=== PATIENT | female | born 1995 | race African-American/Black ===

== ENCOUNTER 2017-07-28 09:14 | Emergency (ER) | payer SELFPAY ==
--- NOTE | 2017-07-28 09:39 | ER Document Report ---
HPI - HPI Patient complains to provider of: flank pain Onset: Just prior to arrival Onset/Duration: Sudden Quality of pain: Sharp, Stabbing Severity: Severe Pain Level: 5 Context: Woke up with right flank pain. Stabbing. Vomiting. Rapid assessment performed at triage and orders began. Patient to be transferred immediately back to main side ER. Associated Symptoms: Vomiting Exacerbated by: Denies Relieved by: Denies Similar symptoms previously: Yes - States that she had Jose Angel when she was before and it feels the same Past Medical History - General Information source: Patient - Social History Smoking Status: Unknown if Ever Smoked Family History: Reviewed & Not Pertinent Vertical Provider Document - CONSTITUTIONAL Agree With Documented VS: Yes Exam Limitations: Clinical Condition - INFECTION CONTROL TRAVEL OUTSIDE OF THE [place] IN LAST 30 DAYS: No - HEENT HEENT: Atraumatic, Normal ENT Exam. negative: Conjuctival Injection - NECK Neck: Normal Inspection, Supple - RESPIRATORY Respiratory: Breath Sounds Normal, No Respiratory Distress O2 Sat by Pulse Oximetry: 99 - CARDIOVASCULAR Cardiovascular: Regular Rate - GI/ABDOMEN Gastrointestinal: Abdomen Soft - MUSCULOSKELETAL/EXTREMETIES Notes: Mild right flank tenderness to percussion - NEURO Level of Consciousness: Awake, Alert Course - Re-evaluation Re-evalutation: 07/28/17 09:42 Possible kidney stone versus pyelonephritis. Will start labs and transfer back to main site ER. The rapid assessment was performed - Vital Signs Vital signs: Temp Pulse Resp BP Pulse Ox 98.5 F 82 20 116/99 H 99 07/28/17 09:18 07/28/17 09:18 07/28/17 09:18 07/28/17 09:18 07/28/17 09:18 Discharge - Discharge Clinical Impression: Flank pain
[2017-07-28] MEDS ORDERED: ONDANSETRON HCL INJ/PF 4 MG/2 ML SDV IV ONE (09:40)
--- NOTE | 2017-07-28 10:00 | ER Document Report ---
ED GI/ - General Mode of Arrival: Ambulatory Information source: Patient TRAVEL OUTSIDE OF THE [place] IN LAST 30 DAYS: No <ANNA BRAMBILA - Last Filed: 07/28/17 10:05> <DANIELA RAMÍREZ - Last Filed: 07/28/17 13:01> - General Chief Complaint: Flank Pain Stated Complaint: ABDOMINAL PAIN Time Seen by Provider: 07/28/17 09:33 Notes: Patient is a 22-year-old female who presents to the emergency department today with complaints of right-sided flank and right sided abdominal pain. Patient states her symptoms began yesterday at 1000 in the morning. Patient states her pain began in her right flank and today the pain radiates into her right lower quadrant. Patient states the pain is constant. Patient states she "feels super hot". Patient is with her LMP being April 25. Patient has received no care and is not taking vitamins. Patient denies dysuria. (ANNA BRAMBILA) - Related Data Allergies/Adverse Reactions: No Known Allergies Allergy (Verified 07/28/17 09:17) Past Medical History - General Information source: Patient - Social History Smoking Status: Never Smoker Cigarette use (# per day): No Frequency of alcohol use: None Drug Abuse: None Lives with: Family Family History: Reviewed & Not Pertinent Patient has suicidal ideation: No Patient has homicidal ideation: No - Medical History Medical History: Negative Surgical Hx: Negative <ANNA BRAMBILA - Last Filed: 07/28/17 10:05> Review of Systems - Review of Systems Constitutional: See HPI, Other - "feels super hot" EENT: No symptoms reported Cardiovascular: No symptoms reported Respiratory: No symptoms reported Gastrointestinal: See HPI, Abdominal pain, Nausea, Vomiting Genitourinary: See HPI, Flank pain. denies: Dysuria Female Genitourinary: See HPI, Last menstrual period - Apr 25 Musculoskeletal: No symptoms reported Skin: No symptoms reported Hematologic/Lymphatic: No symptoms reported Neurological/Psychological: No symptoms reported -: Yes All other systems reviewed and negative <ANNA BRAMBILA - Last Filed: 07/28/17 10:05> Physical Exam <ANNA BRAMBILA - Last Filed: 07/28/17 10:05> <DANIELA RAMÍREZ - Last Filed: 07/28/17 13:01> - Vital signs Vitals: Temp Pulse Resp BP Pulse Ox 98.5 F 82 20 116/99 H 99 07/28/17 09:18 07/28/17 09:18 07/28/17 09:18 07/28/17 09:18 07/28/17 09:18 - Notes Notes: Physical Exam: General: Alert, appears uncomfortable. HEENT: Normocephalic. Atraumatic. PERRL. Extraocular movements intact. Oropharynx clear. No nystagmus. Neck: Supple. Non-tender. Respiratory: No respiratory distress. Clear and equal breath sounds bilaterally. Cardiovascular: Regular rate and rhythm. Abdominal: Gravid. Palpating left side of abdomen causes pain on the right. RUQ palpation causes discomfort in back. RLQ is exquisitely tender with palpation. Nauseated during exam. No guarding or rebound. No distension. Normal Bowel Sounds. Back: Right CVA ttp. No deformity or step off. Extremities: Moves all four extremities. Upper extremities: Normal inspection. Normal ROM. Lower extremities: Normal inspection. No edema. Normal ROM. Neurological: Normal cognition. AAOx4. Normal speech. Psychological: Normal affect. Normal Mood. Skin: Warm. Dry. Normal color. (ANNA BRAMBILA) Course <ANNA BRAMBILA - Last Filed: 07/28/17 10:05> - Laboratory Result Diagrams: 07/28/17 10:20 07/28/17 10:20 - Diagnostic Test Radiology reviewed: Image reviewed, Reports reviewed - Ultrasounds show a 14 week IUP with heart rate of 153. Right renal ultrasound shows marked hydronephrosis. <DANIELA RAMÍREZ - Last Filed: 07/28/17 13:01> - Re-evaluation Re-evalutation: 07/28/17 12:49 The patient's catheterized urinalysis shows 5 WBCs and 132 RBCs without any epithelial cells. The ultrasound shows marked hydronephrosis in the right kidney. (DANIELA RAMÍREZ) - Vital Signs Vital signs: Temp Pulse Resp BP Pulse Ox 98.5 F 82 20 116/99 H 99 07/28/17 09:18 07/28/17 09:18 07/28/17 09:55 07/28/17 09:18 07/28/17 09:43 - Laboratory Laboratory results interpreted by me: 07/28/17 07/28/17 07/28/17 09:50 10:20 10:20 RBC 3.70 L Hgb 11.4 L Hct 33.0 L Creatinine 0.51 L Alkaline Phosphatase 32 L Urine Protein 30 H Urine Blood LARGE H Ur Leukocyte Esterase TRACE H Urine HCG, Qual POSITIVE H 07/28/17 12:09 RBC Hgb Hct Creatinine Alkaline Phosphatase Urine Protein Urine Blood LARGE H Ur Leukocyte Esterase Urine HCG, Qual Discharge <ANNA BRAMBILA - Last Filed: 07/28/17 10:05> <DANIELA RAMÍREZ - Last Filed: 07/28/17 13:01> - Discharge Clinical Impression: Renal colic on right side, with 14 completed weeks gestation Condition: Stable Disposition: HOME, SELF-CARE Additional Instructions: You are 14 weeks . care is best started as early in as possible. You should take only medications approved by your physician. Acetaminophen can safely be taken for minor pains. As a rule, medication for chronic conditions such as asthma or seizures can safely be continued. You should discuss with the physician every medicine you take. Any regular exercise program can be continued. Talk to your physician, however, before engaging in competitive or demanding sports. Alcohol, smoking, and "street drugs" are dangerous to your baby. Cocaine is especially dangerous. Don't use any illicit drugs! Kidney Stone You are passing a kidney stone. These stones are usually due to increased calcium or uric acid concentrations in your urine. Stones within the kidney itself are not painful. The pain occurs as the stone leaves the kidney to pass down the long tube, called the ureter, leading to the bladder. If the stone is small, it will usually pass by itself. Most patients can pass the stone at home. You will usually receive medications for pain, nausea or vomiting, and sometimes a medication to assist in passing the kidney stone. However, if the pain is very severe or if vomiting prevents you from taking oral pain medications, you may need to return for further treatment. Drink three or four quarts of fluids per day. You will be given pain medication (if needed) and urine strainers. Strain all your urine to see if the stone passes. If your doctor has asked you to bring the stone in for analysis, return with the stone once it has passed. Return if pain or vomiting become severe, if you develop a high fever, if you are unable to pass your urine, or if other unusual symptoms occur. TAKE THE MEDICATION PRESCRIBED FOR PAIN AND NAUSEA. DRINK PLENTY OF FLUIDS. STRAIN THE URINE. FOLLOW UP WITH THE HEALTH DEPARTMENT TUESDAY FOR YOUR . FOLLOW UP WITH [facility]--CALL TUESDAY FOR AN APPOINTMENT NEXT WEEK. RETURN TO THE EMERGENCY ROOM IF ANY NEW OR WORSENING SYMPTOMS. Prescriptions: Metoclopramide HCl [Reglan 10 mg Tablet] 1 tab PO ASDIR PRN #20 tablet PRN Reason: Oxycodone HCl/Acetaminophen [Percocet 5-325 mg Tablet] 1 tab PO ASDIR PRN #20 tablet PRN Reason: [facility]errals: [facility] [Provider Group] - Follow up in 1 week Scribe Attestation: 07/28/17 12:14 I personally performed the services described in the documentation, reviewed and edited the documentation which was dictated to the scribe in my presence, and it accurately records my words and actions. (DANIELA RAMÍREZ) Scribe Documentation - Scribe Written by Zuleima:: Zuleima Mccauley, 07/28/2017 1012 acting as scribe for :: Vanessa <ANNA BRAMBILA - Last Filed: 07/28/17 10:05>
[2017-07-28] MEDS ORDERED: METOCLOPRAMIDE HCL INJ/PF 10 MG/2 ML SDV IV ONE (10:02)
[2017-07-28] MEDS ORDERED: MORPHINE SULFATE 10 MG/ML INJ IV ONE ×3 (10:02→12:52)
[2017-07-28] MEDS ORDERED: NORMAL SALINE 1000 ML 1,000 ML IV ONE (10:02)
[2017-07-28 10:13] LABS: APPEARANCE,URINE TURBID; BILIRUBIN,URINE NEGATIVE (NEGATIVE); GLUCOSE, URINE NEGATIVE (NEGATIVE); KETONES,URINE NEGATIVE (NEGATIVE)
[2017-07-28 10:14] LABS: LEUKOCYTE ESTERASE,URINE TRACE (NEGATIVE); NITRITE,URINE NEGATIVE (NEGATIVE); PROTEIN,URINE 30 mg/dL (NEGATIVE); UROBILINOGEN,URINE NEGATIVE mg/dL (<2.0)
[2017-07-28 10:15] LABS: BACTERIA,URINE 4+ /HPF
[2017-07-28 10:43] LABS: ABSOLUTE LYMPHOCYTES (AUTO) 1.4 10^3/uL (0.5-4.7); ABSOLUTE MONOCYTES (AUTO) 0.3 10^3/uL (0.1-1.4); ABSOLUTE NEUT (AUTO) 3.7 10^3/uL (1.7-8.2); BASOPHILS % (AUTO) 0.3 % (0-2); EOSINOPHILS % (AUTO) 0.6 % (0-6); HEMOGLOBIN 11.4 g/dL (12.0-15.5); HGB HCT DIFFERENCE 1.2; LYMPHOCYTES % (AUTO) 26.2 % (13-45); MEAN CORPUSCULAR HEMOGLOBIN 30.9 pg (27.0-33.4); MEAN CORPUSCULAR HGB CONC 34.7 g/dL (32.0-36.0); MEAN CORPUSCULAR VOLUME 89 fl (80-97); MONOCYTES % (AUTO) 6.2 % (3-13); RED CELL DISTRIBUTION WIDTH 13.7 % (11.5-14.0); SEGMENTED NEUTROPHILS % (AUTO) 66.7 % (42-78); WHITE BLOOD COUNT 5.5 10^3/uL (4.0-10.5)
[2017-07-28 11:03] LABS: ALANINE AMINOTRANSFERASE 23 U/L (9-52); ALBUMIN 3.6 g/dL (3.5-5.0); ALKALINE PHOSPHATASE 32 U/L (38-126); ANION GAP 11 (5-19); ASPARTATE AMINO TRANSFERASE 17 U/L (14-36); BILIRUBIN,DIRECT 0.3 mg/dL (0.0-0.4); BILIRUBIN,TOTAL 0.3 mg/dL (0.2-1.3); BLOOD UREA NITROGEN 9 mg/dL (7-20); CALCIUM 8.9 mg/dL (8.4-10.2); CARBON DIOXIDE 23 mmol/L (22-30); CHLORIDE 105 mmol/L (98-107); CREATININE RESULT 0.51 mg/dL (0.52-1.25); GLUCOSE 94 mg/dL (75-110); POTASSIUM 3.7 mmol/L (3.6-5.0); SODIUM 138.9 mmol/L (137-145); TOTAL PROTEIN 6.3 g/dL (6.3-8.2)
--- NOTE | 2017-07-28 12:17 | RADIOLOGY REPORT (SQ) ---
EXAM DESCRIPTION: U/S OB 14+ TRNABD 1GES W/O DOP COMPLETED DATE/TIME: 07/28/2017 12:06 pm REASON FOR STUDY: LMP 04/25/17,no care,RLQ pain,R flank pain COMPARISON: None. TECHNIQUE: Static and Dynamic grayscale imaging performed of gravid uterus using transabdominal appr oach. Additional selected color Doppler and spectral images recorded. All stored on PACS. LIMITATIONS: None. FINDINGS: EGA: 14 weeks 0 days DEBRA: 01/26/2018 EFW: Too early to calculate PERCENTILE: Not applicable TEJAS: Adequate PLACENTA: Anterior low lying placental Herrera measuring 4.6 cm. PRESENTATION: Breech. ANATOMY: HEART RATE: 153 beats per minute. FOUR CHAMBER HEART: Not visualized THREE VESSEL CORD: Not visualized CORD INSERTION: Not visualized KIDNEYS AND BLADDER: Not visualized STOMACH: Not visualized SPINE: Normal as visualized. BRAIN AND LATERAL VENTRICLES: Visualized. Appear normal. OTHER: No other significant finding. MATERNAL ADNEXA: Right ovarian cyst. CERVICAL LENGTH: 3.7 cm Closed. OTHER: No other significant finding. IMPRESSION: LIVING INTRAUTERINE . ESTIMATED GESTATIONAL AGE 14 weeks 0 days Anterior low lying placenta with large placental Herrera. Trimester of : Second trimester - 13 weeks 1 day to 27 weeks 6 days. TECHNICAL DOCUMENTATION: JOB ID: [id number] [employer]- All Rights Reserved
--- NOTE | 2017-07-28 12:18 | RADIOLOGY REPORT (SQ) ---
EXAM DESCRIPTION: U/S RETROPERITON (RENAL/AORTA) COMPLETED DATE/TIME: 07/28/2017 12:09 pm REASON FOR STUDY: Right flank/kidney pain COMPARISON: None. TECHNIQUE: Dynamic and static grayscale images acquired of the kidneys and bladder and recorded on P ACS. Additional selected color Doppler and spectral images recorded. LIMITATIONS: None. FINDINGS: RIGHT KIDNEY: Normal size. Normal echogenicity. No solid or suspicious masses. Vinayak ed hydronephrosis. Renal pelvis measures 3.1 cm. No calcifications. LEFT KIDNEY: Normal size. Normal echogenicity. No solid or suspicious masses. No hydronephrosi s. No calcifications. BLADDER: Not distended. OTHER FINDINGS: No other significant finding. IMPRESSION: Marked right hydronephrosis. TECHNICAL DOCUMENTATION: JOB ID: [id number] [employer]- All Rights Reserved
[2017-07-28 12:28] LABS: APPEARANCE,URINE SLIGHTLY-CLOUDY; BILIRUBIN,URINE NEGATIVE (NEGATIVE); GLUCOSE, URINE NEGATIVE (NEGATIVE); KETONES,URINE NEGATIVE (NEGATIVE); LEUKOCYTE ESTERASE,URINE NEGATIVE (NEGATIVE); NITRITE,URINE NEGATIVE (NEGATIVE); PROTEIN,URINE NEGATIVE (NEGATIVE); URINE SPECIFIC GRAVITY 1.017; UROBILINOGEN,URINE NEGATIVE mg/dL (<2.0)
[2017-07-28 13:31] VITALS: BP 115/68
== END 2017-07-28 13:31 | disposition home or self-care (01) ==
LOC: ER 09:14
DX: O26.892 Other specified pregnancy related conditions, second trimester (principal); N23 Unspecified renal colic; R11.2 Nausea with vomiting, unspecified; Z3A.14 14 weeks gestation of pregnancy
CPT/HCPCS: 96376; 99284; 96361; 96374; 96375; 36415; 87086; 85025; 81025; 80053; 81001; 76770; 76805; J2765; J2270; J7030